=== PATIENT | female | born 1995 | race Caucasian/White ===

== ENCOUNTER 2019-01-23 23:34 | Emergency (ER) | payer SELFPAY ==
[2019-01-24] MEDS ORDERED: Ketorolac Tromethamine 60 MG/2 ML VIAL ONE (00:08)
== END 2019-01-24 00:28 | disposition home or self-care (01) ==
LOC: ERS 23:34
DX: S09.90XA Unspecified injury of head, initial encounter (principal); S16.1XXA Strain of muscle, fascia and tendon at neck level, initial encounter; S70.11XA Contusion of right thigh, initial encounter; W18.30XA Fall on same level, unspecified, initial encounter
CPT/HCPCS: 96372; 99283; J1885

== ENCOUNTER 2022-09-07 08:27 | Outpatient (CLI) | payer BC ==
[2022-09-07] MEDS ORDERED: Iopamidol 370 76% 100 ML VIAL ONE (10:44)
== END 2022-09-07 08:28 | disposition home or self-care (01) ==
LOC: CT 08:27
PROVIDERS: ATTEND Student in an Organized Health Care Education/Training Program
DX: R22.1 Localized swelling, mass and lump, neck (principal); L04.0 Acute lymphadenitis of face, head and neck; L03.221 Cellulitis of neck; I89.8 Other specified noninfective disorders of lymphatic vessels and lymph nodes
CPT/HCPCS: 70491